=== PATIENT | male | born 1940 | race Caucasian/White ===

== ENCOUNTER 2016-12-10 06:11 | Day surgery (SDC) | payer MEDICARE, BC ==
[2016-12-10] MEDS ORDERED: Sodium Chloride 0.9% 10 ML Syringe FLUSH PRN (06:45)
[2016-12-10] MEDS ORDERED: Lactated Ringers 1,000 ML IV SCH (06:45)
[2016-12-10] MEDS ORDERED: Lidocaine 2% 100 MG/5 ML Syringe IVPUSH ONE (08:00)
[2016-12-10] MEDS ORDERED: Propofol 200 MG/20 ML SDV IV ONE (08:00)
[2016-12-10] MEDS ORDERED: Midazolam 1 MG/ML 2 ML SDV IV ONE (08:00)
--- NOTE | 2016-12-10 08:13 | PCM.OPNOTE ---
- General Post-Op/Procedure Note Date of Surgery/Procedure: 12/10/16 Operative Procedure(s): egd with bx Findings: gastritis in the antrum Pre Op Diagnosis: hx of antral ulcer. h pylori Post-Op Diagnosis: gastritis Anesthesia Technique: JAIR Primary Surgeon: Vikas Krishnan Anesthesia Provider: Oswaldo Villar Pathology: antrum Complications: None Condition: Good Free Text/Narrative:: see dictation
[2016-12-10 08:59] VITALS: BP 170/90
--- NOTE | 2016-12-10 14:25 | OR ---
DATE OF OPERATION: 12/10/2016 SURGEON: Vikas Krishnan MD PROCEDURE PERFORMED: Esophagogastroduodenoscopy with cold forceps biopsy. PREOPERATIVE DIAGNOSIS: History of an antral ulcer and Helicobacter pylori infection. POSTOPERATIVE DIAGNOSIS: Gastritis. INDICATIONS FOR PROCEDURE: This is a 76-year-old white male, who presents for followup upper endoscopy. He has a history of any antral ulcer that has been very slow to healing. Finally, he has been diagnosed with Helicobacter pylori and has been treated. He feels wonderful now, but was offered an EGD to ensure that things have healed. DESCRIPTION OF OPERATION: After an excellent IV sedation was administered, the bite block was inserted. The flexible endoscope was passed without difficulty down the patient's esophagus into the stomach. The was insufflated. The scope was passed through the pylorus to the second portion of the duodenum and slowly withdrawn. The following findings were noted. Duodenum is unremarkable. Stomach with some mild irritation in the antrum as well as some prominent folds; however, there is no evidence of any ulcers, which appeared to have been healed. Mill Representative biopsies were taken. The remainder of the gastric exam was essentially unremarkable. The esophagus was unremarkable. The stomach was deflated. Scope was removed. The patient tolerated the procedure well and was taken to recovery room in good condition. /[id number] /MODL
== END 2016-12-10 09:24 | disposition home or self-care (01) ==
LOC: FB.SDS 06:11
PROVIDERS: ATTEND Surgery
DX: K29.50 Unspecified chronic gastritis without bleeding (principal); K31.9 Disease of stomach and duodenum, unspecified; I25.10 Atherosclerotic heart disease of native coronary artery without angina pectoris; I10 Essential (primary) hypertension; E78.00 Pure hypercholesterolemia, unspecified; N40.0 Benign prostatic hyperplasia without lower urinary tract symptoms; E66.9 Obesity, unspecified; Z87.891 Personal history of nicotine dependence; Z79.82 Long term (current) use of aspirin; Z79.899 Other long term (current) drug therapy
CPT/HCPCS: 00740; 43239; 88305; 88342; J2250; J2704; J7120

== ENCOUNTER 2017-05-20 09:06 | Inpatient (IN) | payer MEDICARE, BC ==
[2017-05-20] MEDS ORDERED: Sodium Chloride 0.9% 10 ML Syringe FLUSH PRN (14:21)
[2017-05-20] MEDS ORDERED: Sodium Chloride 0.9% 250 ML IV SCH (14:30)
[2017-05-20] MEDS: Furosemide 40 MG/4 ML VIAL IVPUSH ONE (15:29)
[2017-05-20] MEDS ORDERED: Acetaminophen/Codeine 300-30 MG Tab PO PRN (16:45)
--- NOTE | 2017-05-20 16:48 | PCM.HP ---
H&P History of Present Illness - General Date of Service: 05/20/17 Admit Problem/Dx: Admission Diagnosis/Problem Admission Diagnosis/Problem Anemia Source of Information: Patient, Old Records History Limitations: Reports: No Limitations - History of Present Illness Initial Comments - Free Text/Narative: 77-year-old male with shortness of breath on any exertion. Symptoms have progressively gotten worse over 2 weeks. They also include excessive weight gain , significant swelling of both legs, and nonspecific chest pain. He denies any cough,headache,nausea or vomiting. He had occasional constipation but is well controlled on MiraLAX. He came to the clinic today and was found to have a hemoglobin of 6.0. He has a history of a GI bleed from a gastric ulcer and was last scoped in December by Dr. Krishnan. He also has a history of CAD, previously stable(PET scan neg in 2014) obesity, hypertension hyperlipidemia but also been well-controlled. He denies any melena stools dizziness or headache. He has chronic back pain from arthritis. - Related Data Allergies/Adverse Reactions: Allergies Allergy/AdvReac Type Severity Reaction Status Date / Time No Known Allergies Allergy Verified 05/20/17 14:42 Home Medications: Home Meds Atenolol/Chlorthalidone [Tenoretic 50 Tablet] 0.5 tab PO DAILY 02/28/16 [History ] Gluc 2KCl/Chondr/Martha Hy/Hy Ac [Glucosamine & Chondroitin Cap] 1 each PO BID [History] Disney-3S/DHA/Epa/Fish Oil [Disney-3 Fish Oil 1,000 mg Sfgl] 1,200 mg PO BID 02/27 [History] Simvastatin [Zocor] 80 mg PO BEDTIME 02/28/16 [History] amLODIPine [Norvasc] 10 mg PO DAILY 02/28/16 [History] Acetaminophen with Codeine [Tylenol with Codeine #3 Tablet] 2 tab PO Q4H PRN # 20 tablet 03/02/16 [Rx] Aspirin [Halfprin] 162 mg PO DAILY 04/16/16 [History] Furosemide [Furosemide] 40 mg PO DAILY 05/20/17 [History] Omeprazole 20 mg PO DAILY 05/20/17 [History] Polyethylene Glycol 3350 [MiraLAX] 17 gm PO DAILY 05/20/17 [History] Sennosides/Docusate Sodium [Senna S Tablet] 1 each PO DAILY 05/20/17 [History] Past Medical History HEENT History: Reports: Cataract Other HEENT History: glasses Cardiovascular History: Reports: CAD, High Cholesterol, Hypertension, Other ( See Below) Other Cardiovascular History: carotid artery disease, edema Respiratory History: Reports: None Other Respiratory History: FORMER SMOKER Gastrointestinal History: Reports: GERD, GI Bleed, PUD Other Gastrointestinal History: HX H PYLORI Genitourinary History: Reports: BPH, Prostate Disorder Other Genitourinary History: renal colic Musculoskeletal History: Reports: Arthritis, Osteoarthritis, Other (See Below) Other Musculoskeletal History: severe arthritic pain in both knees, lower abck, right shoulder, both wrists Endocrine/Metabolic History: Reports: Obesity/BMI 30+ Hematologic History: Reports: Anemia, Blood Transfusion(s) Oncologic (Cancer) History: Reports: Other (See Below) Other Oncologic History: PT DID NOT HAVE PROSTATE CA - Infectious Disease History Infectious Disease History: Reports: Chicken Pox, Shingles - Past Surgical History Cardiovascular Surgical History: Reports: Other (See Below) Respiratory Surgical History: Reports: None GI Surgical History: Reports: Colonoscopy, Polypectomy Social & Family History - Tobacco Use Smoking Status *Q: Former Smoker Years of Tobacco use: 20 Packs/Tins Daily: 1 Used Tobacco, but Quit: Yes Month Tobacco Last Used: 1988 Second Hand Smoke Exposure: No - Caffeine Use Caffeine Use: Reports: Coffee - Alcohol Use Days Per Week of Alcohol Use: 5 Number of Drinks Per Day: 2 Total Drinks Per Week: 10 - Recreational Drug Use Recreational Drug Use: No H&P Review of Systems - Review of Systems: Review Of Systems: ROS reveals no pertinent complaints other than HPI. Exam - Exam Exam: See Below - Vital Signs Vital Signs: Last Vital Signs Temp 98.1 F 05/20/17 14:05 Pulse 67 05/20/17 14:05 Resp 19 05/20/17 14:05 BP 120/61 05/20/17 14:05 Pulse Ox 94 L 05/20/17 14:05 Weight: 119.975 kg - Exam Quality Assessment: No: Supplemental Oxygen General: Alert, Oriented, 4 HEENT: PERRLA, Hearing Intact, Mucosa Moist & Parnell, Nares Patent, Normal Nasal Septum, Posterior Pharynx Clear, Conjunctiva Clear, EOMI, EACs Clear, TMs Clear Neck: Supple, Trachea Midline, 2 Lungs: Clear to Auscultation, Normal Respiratory Effort Cardiovascular: Regular Rate, Regular Rhythm GI/Abdominal Exam: Normal Bowel Sounds, Distended. No: Guarding, Tender, Mass, Hepatomegaly (Male) Exam: No Hernia, Normal Inspection, Normal Prostate, Circumcised Rectal (Males) Exam: Normal Exam Back Exam: Normal Inspection, Full Range of Motion, NT Extremities: Normal Inspection, Normal Range of Motion, Non-Tender, No Pedal Edema, Normal Capillary Refill, Pedal Edema (+++) Skin: Warm, Dry, Intact Neurological: Cranial Nerves Intact, Reflexes Equal Bilateral Neuro Extensive - Mental Status: Alert, Oriented x3, Normal Mood/Affect, Normal Cognition Neuro Extensive - Motor, Sensory, Reflexes: CN II-XII Intact, Normal Gait, Normal Reflexes Psychiatric: Alert, Normal Affect, Normal Mood - Patient Data Lab Results Last 24 hrs: Laboratory Results - last 24 hr 05/20/17 Range/Units 15:00 Blood Type O POSITIVE Gel Antibody Screen Negative Crossmatch See Detail Imaging Impressions Last 24 hrs: CXR? infiltrate on right perihilar region *Q Meaningful Use (ADM) - VTE *Q VTE Criteria *Q: - Stroke *Q Stroke Criteria *Q: - AMI *Q AMI Criteria *Q: - Problem List (1) SOBOE (shortness of breath on exertion) SNOMED Code(s): 30184743 ICD Code: R06.02 - SHORTNESS OF BREATH Status: Acute Current Visit: Yes (2) Obesities, morbid SNOMED Code(s): 724410530, 46713404380741 ICD Code: E66.01 - MORBID (SEVERE) OBESITY DUE TO EXCESS CALORIES Status: Acute Current Visit: Yes (3) CHF (congestive heart failure), NYHA class III SNOMED Code(s): 474408802, 000718027 ICD Code: I50.9 - HEART FAILURE, UNSPECIFIED Status: Acute Current Visit : Yes Qualifiers: Congestive heart failure type: unspecified congestive heart failure type Qualified Code(s): I50.9 - Heart failure, unspecified (4) Anemia SNOMED Code(s): 852449497 ICD Code: D64.9 - ANEMIA, UNSPECIFIED Status: Acute Current Visit: No Qualifiers: Anemia type: iron deficiency (5) HTN (hypertension) SNOMED Code(s): 64399365 ICD Code: I10 - ESSENTIAL (PRIMARY) HYPERTENSION Status: Acute Current Visit: Yes Qualifiers: Hypertension type: essential hypertension Qualified Code(s): I10 - Essential (primary) hypertension (6) H/O: GI bleed SNOMED Code(s): 691578896 ICD Code: Z87.19 - PERSONAL HISTORY OF OTHER DISEASES OF THE DIGESTIVE SYSTEM Status: Chronic Current Visit: Yes (7) HLD (hyperlipidemia) SNOMED Code(s): 74647192 ICD Code: E78.5 - HYPERLIPIDEMIA, UNSPECIFIED Status: Chronic Current Visit: Yes Qualifiers: Hyperlipidemia type: unspecified Qualified Code(s): E78.5 - Hyperlipidemia , unspecified (8) MEHUL (acute kidney injury) SNOMED Code(s): 99159828 ICD Code: N17.9 - ACUTE KIDNEY FAILURE, UNSPECIFIED Status: Acute Current Visit: Yes (9) CAD (coronary artery disease) SNOMED Code(s): 19056113 ICD Code: I25.10 - ATHSCL HEART DISEASE OF [place] CORONARY ARTERY W/O ANG PCTRS Status: Acute Current Visit: Yes Qualifiers: Coronary Disease-Associated Artery/Lesion type: hoopa artery (10) Back pain SNOMED Code(s): 803494629 ICD Code: M54.9 - DORSALGIA, UNSPECIFIED Status: Acute Current Visit: Yes Qualifiers: Back pain location: low back pain Chronicity: chronic Sciatica presence: unspecified whether sciatica present Problem List Initiated/Reviewed/Updated: Yes Orders Last 24hrs: Active Orders 24 hr Category Date Time Status Admission Status [Patient Status] [ADT] Routine ADT 05/20/17 13:40 Active Patient Status [ADT] Routine ADT 05/20/17 14:21 Active EKG Documentation Completion [RC] ASDIRECTED Care 05/20/17 14:24 Active Height and Weight [RC] 07 Care 05/20/17 14:21 Active Intake and Output [RC] 06,14,22 Care 05/20/17 14:22 Active Oxygen Therapy [RC] PRN Care 05/20/17 14:21 Active Up With Assistance [RC] ASDIRECTED Care 05/20/17 14:21 Active VTE/DVT Education [RC] Per Unit Routine Care 05/20/17 14:21 Active Vital Signs [RC] Q4H Care 05/20/17 14:21 Active Nothing per Oral After Midnight Diet [DIET] Diet 05/20/17 Dinner Active Chest 2V [CR] Stat Exams 05/20/17 14:21 Taken B-TYPE NATRIURETIC PEPTIDE,BNP [CHEM] AM Lab 05/21/17 05:11 Ordered B-TYPE NATRIURETIC PEPTIDE,BNP [CHEM] Stat Lab 05/20/17 16:44 Ordered CBC WITH AUTO DIFF [HEME] AM Lab 05/21/17 05:11 Ordered CBC WITH AUTO DIFF [HEME] Stat Lab 05/20/17 16:44 Ordered COMPREHENSIVE METABOLIC PN,CMP [CHEM] AM Lab 05/21/17 05:11 Ordered COMPREHENSIVE METABOLIC PN,CMP [CHEM] Stat Lab 05/20/17 16:44 Ordered D Dimer [D-DIMER QUANTITATIVE] [COAG] Routine Lab 05/20/17 16:45 Ordered RED BLOOD CELLS LP [BBK] Urgent Lab 05/20/17 15:00 Results TROPONIN I [CHEM] AM Lab 05/21/17 05:11 Ordered TYPE AND SCREEN [BBK] Urgent Lab 05/20/17 15:00 Results Acetaminophen with Codeine [Tylenol with Codeine #3 Med 05/20/17 16:45 Ordered Tablet] 2 tab PO Q4H PRN Aspirin [Halfprin] Med 05/21/17 09:00 Ordered 162 mg PO DAILY Atenolol/Chlorthalidone [Tenoretic 50 Tablet] Med 05/21/17 09:00 Ordered 0.5 tab PO DAILY Omeprazole [Omeprazole] Med 05/21/17 09:00 Ordered 20 mg PO DAILY Polyethylene Glycol 3350 [MiraLAX] Med 05/21/17 09:00 Ordered 17 gm PO DAILY Sennosides/Docusate Sodium [Senna S Tablet] Med 05/21/17 09:00 Ordered 1 each PO DAILY Simvastatin [Zocor] Med 05/20/17 21:00 Ordered 80 mg PO BEDTIME Sodium Chloride 0.9% [Normal Saline] 250 ml Med 05/20/17 14:30 Active IV ASDIRECTED Sodium Chloride 0.9% [Saline Flush] Med 05/20/17 14:21 Active 10 ml FLUSH ASDIRECTED PRN amLODIPine [Norvasc] Med 05/21/17 09:00 Ordered 10 mg PO DAILY Antiembolic Hose [OM.PC] Per Unit Routine Oth 05/20/17 14:22 Ordered Peripheral IV Insertion Adult [OM.PC] Routine Oth 05/20/17 14:21 Ordered Transfuse Red Blood Cells [COMM] Urgent Oth 05/20/17 14:21 Ordered Resuscitation Status Routine Resus Stat 05/20/17 14:21 Ordered EKG 12 Lead [EK] Stat Ther 05/20/17 14:21 Ordered Medication Orders Sodium Chloride (Normal Saline) 250 mls @ 100 mls/hr IV ASDIRECTED BRANNON Sodium Chloride (Saline Flush) 10 ml FLUSH ASDIRECTED PRN PRN Reason: Keep Vein Open Assessment/Plan Comment:: I have reviewed the chest x-ray shows some perihilar infiltrate on the right(? cause). I have no comparison films. I'll obtain a d-dimer and BNP along with a CMP tonight. I'll consider strongly obtaining a CT scan if the d-dimer is markedly elevated. For his hemoglobin,I have ordered a retic count TIBC, and ferritin levels. Of ordered transfusion of 2 units of PRBCs and discussed the risks with him. At this time I'm not sure the source of his bleeding but given his prior history of an antral ulcer I'm worried that it could be GI. I will obtain a fecal BLOOD occult blood test AND KEEP HIM ON HIS HOME DOSE OF OMEPRAZOLE. CHF IS ALSO POSSIBLE BECAUSE OF SHORTNESS OF BREATH ON EXERTION and as SUCH I have GIVEN 40 MG OF LASIX ONCE AND OF ORDERED FOR ECHOCARDIOGRAM. THE REST OF HIS HOME MEDICATIONS WILL BE CONTINUED
[2017-05-20] MEDS ORDERED: SIMVASTATIN 80 MG PO SCH (21:00)
[2017-05-21] MEDS ORDERED: Docusate Sodium/Sennosides 50-8.6 MG Tab *PTOM PO SCH (09:00)
[2017-05-21] MEDS ORDERED: CHLORTHALIDONE PO SCH (09:00)
[2017-05-21] MEDS ORDERED: Aspirin 81 MG Tab.EC *PTOM PO SCH (09:00)
[2017-05-21] MEDS ORDERED: Omeprazole 20 MG Cap.CR *PTOM PO SCH (09:00)
[2017-05-21] MEDS ORDERED: amLODIPine 10 MG Tab *PTOM PO SCH (09:00)
[2017-05-21] MEDS ORDERED: ATENOLOL PO SCH (09:00)
[2017-05-21] MEDS ORDERED: Sodium Chloride 0.9% 250 ML IV SCH (09:15)
[2017-05-21] MEDS ORDERED: Iopamidol 755 Mg/ML 100 ML Bottle IV ONE (10:24)
--- NOTE | 2017-05-21 10:26 | PN ---
DATE SEEN: 05/21/2017 REASON FOR VISIT: Anemia. HISTORY OF PRESENT ILLNESS: This is a 77-year-old male, who was admitted last night because of anemia. Had 2 units of blood, but his hemoglobin is up to only 7.5 this morning. He complains of shortness of breath on any exertion and weakness, but denies chest pain. He has no fever. REVIEW OF SYSTEMS: All other systems are negative. PAST MEDICAL HISTORY: Obesity, hypertension, coronary artery disease, hyperlipidemia, history of GI bleed due to an ulcer, and history of CHF. PHYSICAL EXAMINATION: VITAL SIGNS: This morning, he has oxygenation of 94% on 2 L of nasal cannula. His pulse rate is 70 beats per minute and temperature 98.5. EARS, NOSE, AND THROAT: Negative. NECK: Supple. No thyromegaly. Trachea is midline. CHEST: Rales and coarse crepitations bilaterally. CARDIOVASCULAR: Normal S1 and S2. EXTREMITIES: Marked peripheral edema. ABDOMEN: Distended, but nontender and no organomegaly noted. LABORATORY DATA: He has pancytopenia with platelet cell count of 26, white cell count 3.2, hemoglobin 7.5. D-dimer is 826. BNP is 457. Electrolytes are normal. Chest x-ray showed bilateral infiltrates, possibly CHF related. EKG normal sinus rhythm. IMPRESSION: 1. Shortness of breath on exertion, unknown reason. 2. Hypoxia. 3. Pancytopenia with anemia and low platelets. 4. Coronary artery disease. 5. Obesity. 6. Hypertension. PLAN: I will obtain an echocardiogram. I will start Lasix IV and give one more unit of PRBCs. Repeat CBC and basic profile in the morning. I will change him to inpatient. I am still waiting for the occult blood in the stool. /[id number] TN/YOONL
[2017-05-21] MEDS: Furosemide 40 MG/4 ML VIAL IVPUSH ONE (10:31)
[2017-05-21] MEDS: Furosemide 40 MG/4 ML VIAL IVPUSH SCH ×2 (10:32→15:42)
[2017-05-21] MEDS: Polyethylene Glycol 3350 Powder 17 GM Packet PO SCH (10:32)
--- NOTE | 2017-05-21 12:57 | CR ---
INDICATION: Anemia. CHEST: PA and two lateral views of the chest were obtained and revealed bibasilar pleural parenchymal changes, which may be on the basis of pneumonia and pleuritis. The heart is enlarged in general with slightly prominent upper lung field pulmonary vasculature, raising question of mild CHF. The appearance of the heart also makes it difficult to exclude a pericardial effusion. Bridging hyperostotic changes are noted in the mid thoracic spine. IMPRESSION: 1. ASHD with cardiomegaly and possible mild CHF. 2. Bibasilar pleural parenchymal changes, which may be on the basis of pneumonia and pleuritis - correlate clinically. 3. DJD spine. MTDD
--- NOTE | 2017-05-21 13:32 | CT ---
INDICATION: Hypoxia, elevated D-dimer at 826. CT ANGIOGRAPHY OF CHEST FOR PULMONARY ARTERIOGRAPHY: Spiral 1.25 mm axial sections were obtained through the chest with 80 mL Isovue 370 at 4 mm/second with sagittal and coronal reconstructions 05/21/2017. No comparisons were available, except for chest x-ray from 05/20/2017. Total exam DLP = 878.73 mGy-cm. Bilateral moderate sized pleural effusions are noted, right greater than left. Interstitial markings are prominent at the lung bases, which may be on the basis of pulmonary vascular congestion in a patient with CHF. The heart is enlarged with valvular and coronary artery calcifications. The possibility of some pneumonia and pleuritis would also be a consideration. Mediastinal lymphadenopathy is of moderate degree scattered throughout the mediastinum and is nonspecific, etiology indeterminate - pneumonia versus neoplasia. Other etiologies such as inflammatory disease cannot be excluded. Calcifications are noted also in the aorta. No definite evidence for pulmonary emboli could be identified. The upper abdomen revealed evidence of fairly massive abdominal ascites and a somewhat nodular appearance of the liver. The spleen appeared prominent but was not fully visualized. Significant splenic enlargement could be present. There appears to be a moderately large calculus near the neck of the gallbladder. Thickening of the wall cannot be excluded. It is not well seen. Gallbladder ultrasound is recommended for further evaluation. The apparent gallstone measures approximately 2 cm. IMPRESSION: 1. No definite evidence for pulmonary emboli. 2. ASHD, cardiomegaly, probable CHF and interstitial lung edema with bilateral pleural effusions of moderate size, right greater than left - cannot exclude superimposed minimal pneumonia with pleuritis. 3. Cholelithiasis with possibility of acute cholecystitis - ultrasound recommended for further evaluation. 4. 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 5. Abdominal ascites, which may be related to cirrhosis of the liver. Splenomegaly may also be present. Report was called to Dr. Horner at 1207 hours on 05/21/2017. [facility]
--- NOTE | 2017-05-22 02:08 | CONS ---
DATE OF CONSULTATION: 05/21/2017 REASON FOR CONSULTATION: Anemia. HISTORY OF PRESENT ILLNESS: This is a 77-year-old white male, who is admitted with a worsening case of shortness of breath and dyspnea on exertion who has gotten progressively worse over the past two weeks. He is also noted to have weight gain as well as increased swelling in his legs. On evaluation in the clinic, he was noted to have a hemoglobin of 6. He has a history of an upper gastrointestinal bleed from an antral ulcer and was last scoped in December. He has received several units transfusion and has come up to 7.5 from 6.9 and apparently received another unit with a CBC pending. ALLERGIES: He has no known drug allergies. MEDICATIONS: Home medications included, 1. Tenoretic 0.5 tablets daily. 2. Glucosamine chondroitin one tablet b.i.d. 3. [place]-3 fish oil 1200 mg b.i.d. Simvastatin 80 mg at bedtime. 1. Norvasc 10 mg daily. 2. Codeine 2 tablets q.4 as needed. 3. Aspirin 162 mg p.o. daily. 4. Furosemide 40 mg daily. 5. Omeprazole 20 mg daily. 6. MiraLAX 17 g daily. 7. Senna-S tablet one p.o. daily. PAST MEDICAL HISTORY: Significant for cataracts, coronary artery disease, carotid artery disease, hypertension, hypercholesterolemia, gastroesophageal reflux disease, as well as antral ulcer secondary to Helicobacter pylori. He does have BPH and history of renal colic in the past as well as osteoarthritis, obesity as well. PAST SURGICAL HISTORY: Significant for colonoscopy with polypectomy in the past as well as upper endoscopy. He has had some cardiac surgery. SOCIAL HISTORY: He did have a 83-rizr-bulw smoking history. Does drink coffee and has an occasional drink during the week. REVIEW OF SYSTEMS: HEENT: Negative for HEENT. PULMONARY: Demonstrates some shortness of breath. CARDIOVASCULAR: Reveals enlarged leg swelling. GI: Has had some constipation, but this has been under control since he has been started with the MiraLAX. He denies any black or bloody stools, but does have some epigastric abdominal discomfort. GENITOURINARY: Negative. MUSCULOSKELETAL: Positive for some foot pain as well as some leg pain. PHYSICAL EXAMINATION: GENERAL: This is a well-developed, well-nourished white male, appearing in no acute distress. HEENT: Grossly within normal limits. LUNGS: Clear to auscultation. HEART: Regular rate and rhythm. ABDOMEN: Soft, normoactive bowel sounds. No rebound, guarding, or tenderness was noted. RECTAL: Deferred. EXTREMITIES: 2+ pitting edema up to his mid calves. SKIN: Warm, dry, and intact. NEURO: He demonstrates no gross neurologic defects. LABORATORY DATA: Laboratory evaluation at the time of my consult reveals a white count of 3.2 with an H and H of 7.5 and 26.7, platelet count of 26. Electrolytes were remarkable for carbon dioxide of 30, total bilirubin 1.4, ALT of 10. Troponin of 0.01 and BNP of 398, which is down from 457. ASSESSMENT: Anemia with history of peptic ulcer disease. PLAN: We are going to proceed with an upper endoscopy tomorrow to make sure that his gastric ulcer has not returned. The procedure and risks were explained to the patient, to include bleeding, infection, and perforation. The patient expresses understanding, and he asked us to proceed. /[id number] /MODL
[2017-05-22] MEDS: Pantoprazole 40 MG Tab.CR PO SCH (06:07)
--- NOTE | 2017-05-22 09:06 | PCM.PN ---
- General Info Date of Service: 05/22/17 Admission Dx/Problem (Free Text): Patient states that he can walk a little farther without getting short of breath. He denies any history of PND or orthopnea. He says leg swelling is also improved. He denies any melena or hematochezia. Does have a history of passing ulcer and 2 previous EGDs. He complains of low back pain has been persistent for years. - Patient Data Vitals - Most Recent: Last Vital Signs Temp 98.5 F 05/22/17 06:00 Pulse 69 05/22/17 06:00 Resp 18 05/22/17 06:00 BP 126/70 05/22/17 06:00 Pulse Ox 96 05/22/17 06:00 Weight - Most Recent: 250 lb I&O - Last 24 Hours: Intake & Output 05/21/17 05/22/17 05/22/17 22:59 06:59 14:59 Intake Total 755 50 Balance 755 50 Lab Results Last 24 Hours: Laboratory Results - last 24 hr 05/20/17 05/22/17 05/22/17 Range/Units 15:00 06:20 06:20 WBC 3.5 L (4.5-12.0) X10-3/uL RBC 4.70 (4.30-5.75) x10(6)uL Hgb 8.8 L (11.5-15.5) g/dL Hct 30.2 (30.0-51.3) % MCV 64.1 L (80-96) fL MCH 18.7 L (27.7-33.6) pg MCHC 29.2 L (32.2-35.4) g/dL RDW 29.6 H (11.5-15.5) % Plt Count 25 L* (125-369) X10(3)uL MPV 9.9 (7.4-10.4) fL Add Manual Diff Yes Neutrophils % (Manual) 78 (46-82) % Lymphocytes % (Manual) 17 (13-37) % Monocytes % (Manual) 4 (4-12) % Eosinophils % (Manual) 1 (0-5) % Hypochromasia Many H Poikilocytosis Moderate H Anisocytosis Many H Microcytosis Moderate H Macrocytosis Moderate H Ovalocytes Moderate H Sodium 139 (135-145) mmol/L Potassium 3.3 L (3.5-5.3) mmol/L Chloride 101 (100-110) mmol/L Carbon Dioxide 33 H (23-29) mmol/L BUN 13 (8-23) mg/dL Creatinine 0.7 (0.6-1.3) mg/dL Est Cr Clr Drug Dosing 86.86 mL/min Estimated GFR (MDRD) > 60 (>60) BUN/Creatinine Ratio 18.6 (9-20) Glucose 96 (80-116) mg/dL Calcium 8.9 (8.6-10.2) mg/dL Blood Type O POSITIVE Gel Antibody Screen Negative Crossmatch See Detail Steve Results Last 24 Hours: Microbiology 05/21/17 04:50 Occult Blood - Final Stool / Feces Med Orders - Current: Current Medications Acetaminophen/Codeine Phosphate (Tylenol With Codeine No.3 300mg/30mg) 2 tab PO Q4H PRN PRN Reason: Pain Amlodipine Besylate (Norvasc) 10 mg PO DAILY [facility] Aspirin (Halfprin) 162 mg PO DAILY [facility] Atenolol/Chlorthalidone (Tenoretic 50) 0.5 tab PO DAILY [facility] Furosemide (Lasix) 40 mg IVPUSH BIDDIURETIC [facility] Last Admin: 05/21/17 15:42 Dose: 40 mg Sodium Chloride (Normal Saline) 250 mls @ 100 mls/hr IV ASDIRECTED [facility] Last Admin: 05/20/17 20:27 Dose: 100 mls/hr Sodium Chloride (Normal Saline) 250 mls @ 100 mls/hr IV ASDIRECTED [facility] Pantoprazole Sodium (Protonix) 40 mg PO DAILY@0600 [facility] Last Admin: 05/22/17 06:07 Dose: 40 mg Polyethylene Glycol (Miralax) 17 gm PO DAILY [facility] Last Admin: 05/21/17 10:32 Dose: Not Given Senna/Docusate Sodium (Senna Plus) 1 tab PO DAILY [facility] Simvastatin (Zocor) 80 mg PO BEDTIME [facility] Last Admin: 05/21/17 20:11 Dose: 80 mg Sodium Chloride (Saline Flush) 10 ml FLUSH ASDIRECTED PRN PRN Reason: Keep Vein Open Discontinued Medications Amlodipine Besylate (Norvasc) 10 mg PO DAILY [facility] Last Admin: 05/21/17 09:10 Dose: 10 mg Aspirin (Halfprin) 162 mg PO DAILY [facility] Last Admin: 05/21/17 09:09 Dose: 162 mg Furosemide (Lasix) 40 mg IVPUSH NOW ONE Stop: 05/20/17 14:22 Last Admin: 05/20/17 15:29 Dose: 40 mg Iopamidol (Isovue-370 (76%)) 100 ml IV . DIRECTED ONE Stop: 05/21/17 10:25 Last Admin: 05/21/17 11:09 Dose: 100 ml Atenolol/Chlorthalidone 50/25 Tab *Ptom 0.5 tab PO DAILY [facility] Last Admin: 05/21/17 09:09 Dose: 0.5 tab Simvastatin [Zocor] (80 Mg *Ptom) 80 mg PO BEDTIME [facility] Last Admin: 05/20/17 21:13 Dose: 80 mg Omeprazole (Omeprazole) 20 mg PO DAILY [facility] Last Admin: 05/21/17 09:10 Dose: 20 mg Senna/Docusate Sodium (Senna Plus) 1 tab PO DAILY [facility] Last Admin: 05/21/17 09:10 Dose: 1 tab - Exam General: Alert, Oriented, Cooperative Lungs: Clear to Auscultation, Normal Respiratory Effort Cardiovascular: Regular Rate, Regular Rhythm, No Murmurs Extremities: Pedal Edema (1+) Psy/Mental Status: Alert, Normal Affect, Normal Mood - Problem List & Annotations (1) CHF (congestive heart failure), NYHA class III SNOMED Code(s): 616224104, 350678240 Code(s): I50.9 - HEART FAILURE, UNSPECIFIED Status: Acute Current Visit: Yes Qualifiers: Congestive heart failure type: unspecified congestive heart failure type Qualified Code(s): I50.9 - Heart failure, unspecified (2) HTN (hypertension) SNOMED Code(s): 99215995 Code(s): I10 - ESSENTIAL (PRIMARY) HYPERTENSION Status: Acute Current Visit: Yes Qualifiers: Hypertension type: essential hypertension Qualified Code(s): I10 - Essential (primary) hypertension (3) Obesities, morbid SNOMED Code(s): 567900924, 38310887570459 Code(s): E66.01 - MORBID (SEVERE) OBESITY DUE TO EXCESS CALORIES Status: Acute Current Visit: Yes (4) SOBOE (shortness of breath on exertion) SNOMED Code(s): 68800788 Code(s): R06.02 - SHORTNESS OF BREATH Status: Acute Current Visit: Yes (5) H/O: GI bleed SNOMED Code(s): 787022064 Code(s): Z87.19 - PERSONAL HISTORY OF OTHER DISEASES OF THE DIGESTIVE SYSTEM Status: Chronic Current Visit: Yes (6) Anemia SNOMED Code(s): 255088946 Code(s): D64.9 - ANEMIA, UNSPECIFIED Status: Acute Current Visit: No Qualifiers: Anemia type: iron deficiency - Problem List Review Problem List Initiated/Reviewed/Updated: Yes - Plan Plan:: 1. Continue Lasix. 2. Peripheral smear. 3. EGD today. 4. Echocardiogram 5. Labs in the a.m.
[2017-05-22] MEDS: Polyethylene Glycol 3350 Powder 17 GM Packet PO SCH (09:29)
[2017-05-22] MEDS: amLODIPine 10 MG Tab PO SCH (09:29)
[2017-05-22] MEDS: Aspirin 81 MG Tab.EC PO SCH (09:29)
[2017-05-22] MEDS: Atenolol/Chlorthalidone 50-25 MG Tab PO SCH (09:30)
[2017-05-22] MEDS: Furosemide 40 MG Tab PO SCH ×2 (10:00→15:00)
[2017-05-22] MEDS ORDERED: Propofol 200 MG/20 ML SDV IV ONE (12:00)
[2017-05-22] MEDS ORDERED: Midazolam 1 MG/ML 2 ML SDV IV ONE (12:00)
--- NOTE | 2017-05-22 12:20 | PCM.OPNOTE ---
- General Post-Op/Procedure Note Date of Surgery/Procedure: 05/22/17 Operative Procedure(s): egd with bx Findings: hypertrophic antral tissue no antral ulcer Pre Op Diagnosis: hx of antral ulcer. anemia Post-Op Diagnosis: normal exam Anesthesia Technique: JAIR Primary Surgeon: Vikas Krishnan Anesthesia Provider: Oswaldo Villar Pathology: antrum Complications: None Condition: Good Free Text/Narrative:: Intake & Output 05/21/17 05/22/17 05/22/17 22:59 06:59 14:59 Intake Total 755 50 Balance 755 50 see dictation
--- NOTE | 2017-05-22 19:12 | OR ---
DATE OF OPERATION: 05/22/2017 SURGEON: Vikas Krishnan MD PROCEDURE PERFORMED: Esophagogastroduodenoscopy with cold forceps biopsy. PREOPERATIVE DIAGNOSIS: History of anemia with history of antral ulcer. POSTOPERATIVE DIAGNOSIS: Normal exam with hypotrophic folds of the antrum. INDICATIONS FOR PROCEDURE: This is a 77-year-old white male who apparently was recently admitted with anemia. He has a history of an antral ulcer in the past and an EGD was requested to evaluate for possible return of the ulcer. DESCRIPTION OF OPERATION: After an excellent IV sedation was administered, the bite block was inserted. The flexible endoscope was passed without difficulty down the patient's esophagus into the stomach. The stomach was insufflated. Scope was passed through the pylorus to the second portion of duodenum and slowly withdrawn. The following findings were noted. Duodenum unremarkable. Antrum, there were some hypotrophic folds which were biopsied, but I saw no evidence of any ulceration in the stomach. Biopsies were taken of the folds. Esophagus was unremarkable. The stomach was deflated. Scope was removed. The patient tolerated the procedure well and was taken to recovery in good condition. /[id number] 1502 /MODL
[2017-05-22] MEDS: Furosemide 40 MG/4 ML VIAL IVPUSH SCH (23:09)
[2017-05-22 23:17] LABS: UNSATURATED IRON BIND CAPACITY 373 ug/dL (112-347)
[2017-05-23] MEDS: Pantoprazole 40 MG Tab.CR PO SCH (06:41)
[2017-05-23] MEDS: Furosemide 40 MG Tab PO SCH (08:58)
[2017-05-23] MEDS: Aspirin 81 MG Tab.EC PO SCH (10:00)
[2017-05-23] MEDS: Polyethylene Glycol 3350 Powder 17 GM Packet PO SCH (10:11)
--- NOTE | 2017-05-23 10:13 | PCM.PN ---
- General Info Date of Service: 05/23/17 Admission Dx/Problem (Free Text): This a 77-year-old male patient states he feels good today. Leg swelling is down. He is able to walk down the mike without getting too short of breath. He denies any rectal bleeding or melena. Denies bruising. - Patient Data Vitals - Most Recent: Last Vital Signs Temp 98 F 05/23/17 06:00 Pulse 70 05/23/17 06:00 Resp 18 05/23/17 06:00 BP 124/71 05/23/17 06:00 Pulse Ox 95 05/23/17 06:00 Weight - Most Recent: 245 lb 8 oz I&O - Last 24 Hours: Intake & Output 05/22/17 05/23/17 05/23/17 22:59 06:59 14:59 Intake Total 200 100 480 Output Total 600 400 Balance -400 -300 480 Lab Results Last 24 Hours: Laboratory Results - last 24 hr 05/20/17 05/20/17 05/20/17 Range/Units 15:00 15:00 15:00 WBC (4.5-12.0) X10-3/uL RBC (4.30-5.75) x10(6)uL Hgb (11.5-15.5) g/dL Hct (30.0-51.3) % MCV (80-96) fL MCH (27.7-33.6) pg MCHC (32.2-35.4) g/dL RDW (11.5-15.5) % Plt Count (125-369) X10(3)uL MPV (7.4-10.4) fL Neut % (Auto) (46-82) % Lymph % (Auto) (13-37) % Glades % (Auto) (4-12) % Eos % (Auto) (1.0-5.0) % Baso % (Auto) (0-2) % Reticulocyte % (Auto) 1.6 (0.4-2.7) % Neut # (Auto) (1.6-8.3) # Lymph # (Auto) (0.6-5.0) # Glades # (Auto) (0.0-1.3) # Eos # (Auto) (0.0-0.8) # Baso # (Auto) (0.0-0.2) # Smear Path Review Absolute Retic 64 (16-123) K/uL Sodium (135-145) mmol/L Potassium (3.5-5.3) mmol/L Chloride (100-110) mmol/L Carbon Dioxide (23-29) mmol/L BUN (8-23) mg/dL Creatinine (0.6-1.3) mg/dL Est Cr Clr Drug Dosing mL/min Estimated GFR (MDRD) (>60) BUN/Creatinine Ratio (9-20) Glucose (80-116) mg/dL Calcium (8.6-10.2) mg/dL Iron 12 L (45-190) ug/dL TIBC 385 (157-537) ug/dL Iron Saturation 3 L (15-55) % Unsaturated IBC 373 H (112-347) ug/dL Ferritin 13 (11-450) ng/mL Total Bilirubin (0.1-1.3) mg/dL AST (5-27) IU/L ALT (14-26) IU/L Alkaline Phosphatase (56-112) IU/L Total Protein (6.0-8.0) g/dL Albumin (3.2-4.6) g/dL Globulin g/dL Albumin/Globulin Ratio 05/22/17 05/23/17 05/23/17 Range/Units 06:20 06:20 06:20 WBC 3.8 L (4.5-12.0) X10-3/uL RBC 4.97 (4.30-5.75) x10(6)uL Hgb 9.3 L (11.5-15.5) g/dL Hct 32.0 (30.0-51.3) % MCV 64.4 L (80-96) fL MCH 18.8 L (27.7-33.6) pg MCHC 29.2 L (32.2-35.4) g/dL RDW 29.6 H (11.5-15.5) % Plt Count 30 L* (125-369) X10(3)uL MPV 9.7 (7.4-10.4) fL Neut % (Auto) 60.4 (46-82) % Lymph % (Auto) 28.7 (13-37) % Glades % (Auto) 7.9 (4-12) % Eos % (Auto) 3 (1.0-5.0) % Baso % (Auto) 1 (0-2) % Reticulocyte % (Auto) (0.4-2.7) % Neut # (Auto) 2.3 (1.6-8.3) # Lymph # (Auto) 1.1 (0.6-5.0) # Glades # (Auto) 0.3 (0.0-1.3) # Eos # (Auto) 0.1 (0.0-0.8) # Baso # (Auto) 0.0 (0.0-0.2) # Smear Path Review See note Absolute Retic (16-123) K/uL Sodium 142 (135-145) mmol/L Potassium 3.1 L (3.5-5.3) mmol/L Chloride 103 (100-110) mmol/L Carbon Dioxide 32 H (23-29) mmol/L BUN 11 (8-23) mg/dL Creatinine 0.7 (0.6-1.3) mg/dL Est Cr Clr Drug Dosing 86.86 mL/min Estimated GFR (MDRD) > 60 (>60) BUN/Creatinine Ratio 15.7 (9-20) Glucose 102 (80-116) mg/dL Calcium 8.9 (8.6-10.2) mg/dL Iron (45-190) ug/dL TIBC (157-537) ug/dL Iron Saturation (15-55) % Unsaturated IBC (112-347) ug/dL Ferritin (11-450) ng/mL Total Bilirubin 1.2 (0.1-1.3) mg/dL AST 20 (5-27) IU/L ALT 11 L (14-26) IU/L Alkaline Phosphatase 56 (56-112) IU/L Total Protein 5.9 L (6.0-8.0) g/dL Albumin 3.3 (3.2-4.6) g/dL Globulin 2.6 g/dL Albumin/Globulin Ratio 1.3 Med Orders - Current: Current Medications Aspirin (Halfprin) 162 mg PO DAILY [facility] Last Admin: 05/22/17 09:29 Dose: Not Given Carvedilol (Coreg) 6.25 mg PO BID [facility] Furosemide (Lasix) 40 mg PO DAILY [facility] Lisinopril (Prinivil) 20 mg PO DAILY [facility] Pantoprazole Sodium (Protonix) 40 mg PO DAILY@0600 [facility] Last Admin: 05/23/17 06:41 Dose: 40 mg Polyethylene Glycol (Miralax) 17 gm PO DAILY [facility] Last Admin: 05/22/17 09:29 Dose: Not Given Potassium Chloride (Klor-Con M20) 20 meq PO BID [facility] Senna/Docusate Sodium (Senna Plus) 1 tab PO DAILY [facility] Last Admin: 05/22/17 09:29 Dose: Not Given Simvastatin (Zocor) 80 mg PO BEDTIME [facility] Last Admin: 05/22/17 21:25 Dose: 80 mg Sodium Chloride (Saline Flush) 10 ml FLUSH ASDIRECTED PRN PRN Reason: Keep Vein Open Discontinued Medications Acetaminophen/Codeine Phosphate (Tylenol With Codeine No.3 300mg/30mg) 2 tab PO Q4H PRN PRN Reason: Pain Amlodipine Besylate (Norvasc) 10 mg PO DAILY [facility] Last Admin: 05/21/17 09:10 Dose: 10 mg Amlodipine Besylate (Norvasc) 10 mg PO DAILY [facility] Last Admin: 05/22/17 09:29 Dose: Not Given Aspirin (Halfprin) 162 mg PO DAILY [facility] Last Admin: 05/21/17 09:09 Dose: 162 mg Atenolol/Chlorthalidone (Tenoretic 50) 0.5 tab PO DAILY [facility] Last Admin: 05/22/17 09:30 Dose: Not Given Furosemide (Lasix) 40 mg IVPUSH NOW ONE Stop: 05/20/17 14:22 Last Admin: 05/20/17 15:29 Dose: 40 mg Furosemide (Lasix) 40 mg IVPUSH BIDDIURETIC [facility] Last Admin: 05/22/17 23:09 Dose: Not Given Furosemide (Lasix) 40 mg PO BIDDIURETIC [facility] Last Admin: 05/23/17 08:58 Dose: 40 mg Sodium Chloride (Normal Saline) 250 mls @ 100 mls/hr IV ASDIRECTED [facility] Last Admin: 05/20/17 20:27 Dose: 100 mls/hr Sodium Chloride (Normal Saline) 250 mls @ 100 mls/hr IV ASDIRECTED [facility] Iopamidol (Isovue-370 (76%)) 100 ml IV . DIRECTED ONE Stop: 05/21/17 10:25 Last Admin: 05/21/17 11:09 Dose: 100 ml Atenolol/Chlorthalidone 50/25 Tab *Ptom 0.5 tab PO DAILY [facility] Last Admin: 05/21/17 09:09 Dose: 0.5 tab Simvastatin [Zocor] (80 Mg *Ptom) 80 mg PO BEDTIME [facility] Last Admin: 05/20/17 21:13 Dose: 80 mg Omeprazole (Omeprazole) 20 mg PO DAILY [facility] Last Admin: 05/21/17 09:10 Dose: 20 mg Senna/Docusate Sodium (Senna Plus) 1 tab PO DAILY [facility] Last Admin: 05/21/17 09:10 Dose: 1 tab - Exam General: Alert, Oriented, Cooperative Lungs: Clear to Auscultation, Normal Respiratory Effort Cardiovascular: Regular Rate, Regular Rhythm, No Murmurs GI/Abdominal Exam: Normal Bowel Sounds, Soft, Non-Tender, Distended (Mild). No : Guarding, Hepatomegaly, Splenomegaly Extremities: Pedal Edema Psy/Mental Status: Alert, Normal Affect, Normal Mood - Problem List & Annotations (1) CHF (congestive heart failure), NYHA class III SNOMED Code(s): 159371360, 114890986 Code(s): I50.9 - HEART FAILURE, UNSPECIFIED Status: Acute Current Visit: Yes Qualifiers: Congestive heart failure type: diastolic Congestive heart failure chronicity: acute Qualified Code(s): I50.31 - Acute diastolic (congestive) heart failure (2) HTN (hypertension) SNOMED Code(s): 43076635 Code(s): I10 - ESSENTIAL (PRIMARY) HYPERTENSION Status: Acute Current Visit: Yes Qualifiers: Hypertension type: essential hypertension Qualified Code(s): I10 - Essential (primary) hypertension (3) Obesities, morbid SNOMED Code(s): 937771535, 74969378923764 Code(s): E66.01 - MORBID (SEVERE) OBESITY DUE TO EXCESS CALORIES Status: Acute Current Visit: Yes (4) SOBOE (shortness of breath on exertion) SNOMED Code(s): 21761914 Code(s): R06.02 - SHORTNESS OF BREATH Status: Acute Current Visit: Yes (5) H/O: GI bleed SNOMED Code(s): 563413688 Code(s): Z87.19 - PERSONAL HISTORY OF OTHER DISEASES OF THE DIGESTIVE SYSTEM Status: Chronic Current Visit: Yes (6) Anemia SNOMED Code(s): 637242681 Code(s): D64.9 - ANEMIA, UNSPECIFIED Status: Acute Current Visit: No Qualifiers: Anemia type: iron deficiency (7) Thrombocytopenia SNOMED Code(s): 587859959 Code(s): D69.6 - THROMBOCYTOPENIA, UNSPECIFIED Status: Acute Current Visit: Yes (8) Hypokalemia SNOMED Code(s): 47575253 Code(s): E87.6 - HYPOKALEMIA Status: Acute Current Visit: Yes - Problem List Review Problem List Initiated/Reviewed/Updated: Yes - My Orders Last 24 Hours: My Active Orders 05/23/17 10:06 Convert IV to Saline Lock [OM.PC] Routine 05/23/17 10:15 Lisinopril [Prinivil] 20 mg PO DAILY 05/23/17 21:00 Carvedilol [Coreg] 6.25 mg PO BID Potassium Chloride [Klor-Con M20] 20 meq PO BID 05/24/17 05:11 CBC WITH AUTO DIFF [HEME] AM 05/24/17 06:00 BASIC METABOLIC PANEL,BMP [CHEM] AM 05/24/17 09:00 Furosemide [Lasix] 40 mg PO DAILY - Plan Plan:: 1. I don't see any signs of cirrhosis. Chest x-ray and CT show CHF. Echo shows diastolic dysfunction. So I stopped his Norvasc and his atenolol chlorothiazide. Start lisinopril 20 mg with Coreg 6.25 mg twice a day. 2. Change Lasix dose to 40 mg a day. 3. Potassium 20 mEq twice a day. 4. DC IV fluids and saline lock. 5. Ambulate frequently 6. CBC/panel 8 in the AM. 7. His platelet functions up a little bit and I'm hoping it'll continue to climb. Need to keep him to watch him with these med rechecks and make sure his edema doesn't get worse on Lasix 40 mg a day. 8. Anticipate discharge home tomorrow if he does well and has no regressions.
[2017-05-23] MEDS: amLODIPine 10 MG Tab PO SCH (11:15)
[2017-05-23] MEDS: Atenolol/Chlorthalidone 50-25 MG Tab PO SCH (11:16)
[2017-05-23] MEDS: Lisinopril 20 MG Tab PO SCH (11:56)
[2017-05-23] MEDS: Ferrous Sulfate 325 MG Tab PO SCH (18:51)
[2017-05-23] MEDS: Carvedilol 6.25 MG Tab PO SCH (20:41)
[2017-05-23] MEDS: Potassium Chloride 20 MEQ Tab.ER PO SCH (20:42)
[2017-05-24] MEDS: Pantoprazole 40 MG Tab.CR PO SCH (05:00)
[2017-05-24] MEDS: Ferrous Sulfate 325 MG Tab PO SCH (08:40)
[2017-05-24] MEDS: Carvedilol 6.25 MG Tab PO SCH (08:41)
[2017-05-24] MEDS: Aspirin 81 MG Tab.EC PO SCH (08:42)
[2017-05-24] MEDS: Polyethylene Glycol 3350 Powder 17 GM Packet PO SCH (08:42)
[2017-05-24] MEDS: Potassium Chloride 20 MEQ Tab.ER PO SCH (08:42)
[2017-05-24] MEDS: Lisinopril 20 MG Tab PO SCH (08:43)
[2017-05-24 08:44] VITALS: BP 116/59
[2017-05-24] MEDS ORDERED: Furosemide 40 MG Tab PO SCH (09:00)
--- NOTE | 2017-05-24 10:11 | PCM.PN ---
- General Info Date of Service: 05/24/17 Admission Dx/Problem (Free Text): Patient doing well. Uses a little shortness of breath when he walks. He believes his leg swelling is gone down. No chest pain. - Patient Data Vitals - Most Recent: Last Vital Signs Temp 97.8 F 05/24/17 04:50 Pulse 71 05/24/17 08:41 Resp 18 05/24/17 04:50 BP 116/59 L 05/24/17 08:43 Pulse Ox 91 L 05/24/17 04:50 Weight - Most Recent: 243 lb 3.2 oz I&O - Last 24 Hours: Intake & Output 05/23/17 05/24/17 05/24/17 22:59 06:59 14:59 Intake Total 500 400 Output Total 600 0 Balance -100 0 400 Lab Results Last 24 Hours: Laboratory Results - last 24 hr 05/24/17 05/24/17 Range/Units 06:40 06:40 WBC 3.8 L (4.5-12.0) X10-3/uL RBC 5.08 (4.30-5.75) x10(6)uL Hgb 9.5 L (11.5-15.5) g/dL Hct 32.9 (30.0-51.3) % MCV 64.8 L (80-96) fL MCH 18.6 L (27.7-33.6) pg MCHC 28.7 L (32.2-35.4) g/dL RDW 29.5 H (11.5-15.5) % Plt Count 30 L* (125-369) X10(3)uL MPV 7.4 (7.4-10.4) fL Neut % (Auto) Not Reportable Lymph % (Auto) Not Reportable Smith % (Auto) Not Reportable Eos % (Auto) Not Reportable Baso % (Auto) Not Reportable Neut # (Auto) Not Reportable Lymph # (Auto) Not Reportable Smith # (Auto) Not Reportable Eos # (Auto) Not Reportable Baso # (Auto) Not Reportable Add Manual Diff Yes Neutrophils % (Manual) 74 (46-82) % Lymphocytes % (Manual) 20 (13-37) % Monocytes % (Manual) 2 L (4-12) % Eosinophils % (Manual) 4 (0-5) % Hypochromasia Moderate H Anisocytosis Moderate H Microcytosis Moderate H Sodium 140 (135-145) mmol/L Potassium 3.2 L (3.5-5.3) mmol/L Chloride 103 (100-110) mmol/L Carbon Dioxide 31 H (23-29) mmol/L BUN 10 (8-23) mg/dL Creatinine 0.6 (0.6-1.3) mg/dL Est Cr Clr Drug Dosing 101.33 mL/min Estimated GFR (MDRD) > 60 (>60) BUN/Creatinine Ratio 16.7 (9-20) Glucose 103 (80-116) mg/dL Calcium 8.9 (8.6-10.2) mg/dL Med Orders - Current: Current Medications Aspirin (Halfprin) 162 mg PO DAILY [facility] Last Admin: 05/24/17 08:42 Dose: 162 mg Carvedilol (Coreg) 6.25 mg PO BID [facility] Last Admin: 05/24/17 08:41 Dose: 6.25 mg Ferrous Sulfate (Ferrous Sulfate) 325 mg PO BIDMEALS [facility] Last Admin: 05/24/17 08:40 Dose: 325 mg Furosemide (Lasix) 40 mg PO DAILY [facility] Last Admin: 05/24/17 08:42 Dose: 40 mg Lisinopril (Prinivil) 20 mg PO DAILY [facility] Last Admin: 05/24/17 08:43 Dose: 20 mg Pantoprazole Sodium (Protonix) 40 mg PO DAILY@0600 [facility] Last Admin: 05/24/17 05:00 Dose: 40 mg Polyethylene Glycol (Miralax) 17 gm PO DAILY [facility] Last Admin: 05/24/17 08:42 Dose: Not Given Potassium Chloride (Klor-Con M20) 20 meq PO BID [facility] Last Admin: 05/24/17 08:42 Dose: 20 meq Senna/Docusate Sodium (Senna Plus) 1 tab PO DAILY [facility] Last Admin: 05/24/17 08:43 Dose: 1 tab Simvastatin (Zocor) 80 mg PO BEDTIME [facility] Last Admin: 05/23/17 20:42 Dose: 80 mg Sodium Chloride (Saline Flush) 10 ml FLUSH ASDIRECTED PRN PRN Reason: Keep Vein Open Discontinued Medications Acetaminophen/Codeine Phosphate (Tylenol With Codeine No.3 300mg/30mg) 2 tab PO Q4H PRN PRN Reason: Pain Amlodipine Besylate (Norvasc) 10 mg PO DAILY [facility] Last Admin: 05/21/17 09:10 Dose: 10 mg Amlodipine Besylate (Norvasc) 10 mg PO DAILY [facility] Last Admin: 05/23/17 11:15 Dose: Not Given Aspirin (Halfprin) 162 mg PO DAILY [facility] Last Admin: 05/21/17 09:09 Dose: 162 mg Atenolol/Chlorthalidone (Tenoretic 50) 0.5 tab PO DAILY [facility] Last Admin: 05/23/17 11:16 Dose: Not Given Furosemide (Lasix) 40 mg IVPUSH NOW ONE Stop: 05/20/17 14:22 Last Admin: 05/20/17 15:29 Dose: 40 mg Furosemide (Lasix) 40 mg IVPUSH BIDDIURETIC [facility] Last Admin: 05/22/17 23:09 Dose: Not Given Furosemide (Lasix) 40 mg PO BIDDIURETIC [facility] Last Admin: 05/23/17 08:58 Dose: 40 mg Sodium Chloride (Normal Saline) 250 mls @ 100 mls/hr IV ASDIRECTED [facility] Last Admin: 05/20/17 20:27 Dose: 100 mls/hr Sodium Chloride (Normal Saline) 250 mls @ 100 mls/hr IV ASDIRECTED [facility] Iopamidol (Isovue-370 (76%)) 100 ml IV . DIRECTED ONE Stop: 05/21/17 10:25 Last Admin: 05/21/17 11:09 Dose: 100 ml Atenolol/Chlorthalidone 50/25 Tab *Ptom 0.5 tab PO DAILY [facility] Last Admin: 05/21/17 09:09 Dose: 0.5 tab Simvastatin [Zocor] (80 Mg *Ptom) 80 mg PO BEDTIME [facility] Last Admin: 05/20/17 21:13 Dose: 80 mg Omeprazole (Omeprazole) 20 mg PO DAILY [facility] Last Admin: 05/21/17 09:10 Dose: 20 mg Senna/Docusate Sodium (Senna Plus) 1 tab PO DAILY [facility] Last Admin: 05/21/17 09:10 Dose: 1 tab - Exam General: Alert, Oriented, Cooperative Lungs: Clear to Auscultation, Normal Respiratory Effort Cardiovascular: Regular Rate, Regular Rhythm. No: No Murmurs Extremities: Pedal Edema (Improved) - Problem List & Annotations (1) CHF (congestive heart failure), NYHA class III SNOMED Code(s): 685162893, 272075307 Code(s): I50.9 - HEART FAILURE, UNSPECIFIED Status: Acute Current Visit: Yes Qualifiers: Congestive heart failure type: diastolic Congestive heart failure chronicity: acute Qualified Code(s): I50.31 - Acute diastolic (congestive) heart failure (2) HTN (hypertension) SNOMED Code(s): 18646618 Code(s): I10 - ESSENTIAL (PRIMARY) HYPERTENSION Status: Acute Current Visit: Yes Qualifiers: Hypertension type: essential hypertension Qualified Code(s): I10 - Essential (primary) hypertension (3) Obesities, morbid SNOMED Code(s): 094769202, 84328972616772 Code(s): E66.01 - MORBID (SEVERE) OBESITY DUE TO EXCESS CALORIES Status: Acute Current Visit: Yes (4) SOBOE (shortness of breath on exertion) SNOMED Code(s): 51404369 Code(s): R06.02 - SHORTNESS OF BREATH Status: Acute Current Visit: Yes (5) H/O: GI bleed SNOMED Code(s): 156578576 Code(s): Z87.19 - PERSONAL HISTORY OF OTHER DISEASES OF THE DIGESTIVE SYSTEM Status: Chronic Current Visit: Yes (6) Anemia SNOMED Code(s): 235682370 Code(s): D64.9 - ANEMIA, UNSPECIFIED Status: Acute Current Visit: No Qualifiers: Anemia type: iron deficiency (7) Thrombocytopenia SNOMED Code(s): 901334517 Code(s): D69.6 - THROMBOCYTOPENIA, UNSPECIFIED Status: Acute Current Visit: Yes (8) Hypokalemia SNOMED Code(s): 23043625 Code(s): E87.6 - HYPOKALEMIA Status: Acute Current Visit: Yes - Problem List Review Problem List Initiated/Reviewed/Updated: Yes - My Orders Last 24 Hours: My Active Orders 05/23/17 10:06 Convert IV to Saline Lock [OM.PC] Routine 05/23/17 10:15 Lisinopril [Prinivil] 20 mg PO DAILY 05/23/17 18:00 Ferrous Sulfate 325 mg PO BIDMEALS 05/23/17 21:00 Carvedilol [Coreg] 6.25 mg PO BID Potassium Chloride [Klor-Con M20] 20 meq PO BID 05/24/17 09:00 Furosemide [Lasix] 40 mg PO DAILY 05/24/17 10:01 FOLATE [REF] Routine VITAMIN B12 [CHEM] Routine 05/24/17 10:08 Ready for Discharge [RC] PER UNIT ROUTINE - Assessment Assessment:: 1. Discussed care with oncology/hematology. They think is limits her low most likely from alcohol. They recommended vitamin B12. I will order that and a folic acid before he leaves today. They also stated that his platelets should be rechecked in 2 days. If they're not going up they will get him in for a bone marrow. 2. DC to home with tramadol for pain, lisinopril and Coreg for blood pressure and fluid. I stopped the Norvasc and his atenolol chlorthalidone. - Plan Plan:: 1. I don't see any signs of cirrhosis. Chest x-ray and CT show CHF. Echo shows diastolic dysfunction. So I stopped his Norvasc and his atenolol chlorothiazide. Start lisinopril 20 mg with Coreg 6.25 mg twice a day. 2. Change Lasix dose to 40 mg a day. 3. Potassium 20 mEq twice a day. 4. DC IV fluids and saline lock. 5. Ambulate frequently 6. CBC/panel 8 in the AM. 7. His platelet functions up a little bit and I'm hoping it'll continue to climb. Need to keep him to watch him with these med rechecks and make sure his edema doesn't get worse on Lasix 40 mg a day. 8. Anticipate discharge home tomorrow if he does well and has no regressions.
--- NOTE | 2017-05-24 10:13 | PCM.DCSUM1 ---
Discharge Summary - Hospital Course Free Text/Narrative:: Patient was admitted and given blood 2. Dr. Krishnan was consult to because of his history of gastric ulcer this bleeding in the past. He had 1 guaiac was negative. He had a EGD that was negative for ulcer. Patient's potassium was low and was treated with potassium. His platelets were low. He states he drinks a little bit every day and we are wondering if it CHF or liver disease is causing his swelling. I stopped his amlodipine and atenolol chlorthalidone and started him on lisinopril and Coreg. He was given Lasix IV initially and then by mouth and his swelling went down. His hemoglobin got over 9 after his transfusions and he was able to maintain it. Iron was started. Had a peripheral stated that showed iron deficiency anemia. No cause for thrombocytopenia. Discussed care with hematology and they thought it was most likely alcohol. Were to recheck a CBC outpatient and if platelets are not going up they will do bone marrow. Brief History: 77-year-old male with shortness of breath on any exertion. Symptoms have progressively gotten worse over 2 weeks. They also include excessive weight gain, significant swelling of both legs, and nonspecific chest pain. He denies any cough,headache,nausea or vomiting. He had occasional constipation but is well controlled on MiraLAX. He came to the clinic today and was found to have a hemoglobin of 6.0. He has a history of a GI bleed from a gastric ulcer and was last scoped in December by Dr. Krishnan. He also has a history of CAD, previously stable(PET scan neg in 2014) obesity, hypertension hyperlipidemia but also been well-controlled. He denies any melena stools dizziness or headache. He has chronic back pain from arthritis. - Discharge Data Discharge Date: 05/24/17 Discharge Disposition: Home, Self-Care 01 Condition: Good - Discharge Diagnosis/Problem(s) (1) CHF (congestive heart failure), NYHA class III SNOMED Code(s): 339513719, 285615079 ICD Code: I50.9 - HEART FAILURE, UNSPECIFIED Status: Acute Current Visit : Yes Qualifiers: Congestive heart failure type: diastolic Congestive heart failure chronicity: acute Qualified Code(s): I50.31 - Acute diastolic (congestive) heart failure (2) HTN (hypertension) SNOMED Code(s): 17927254 ICD Code: I10 - ESSENTIAL (PRIMARY) HYPERTENSION Status: Acute Current Visit: Yes Qualifiers: Hypertension type: essential hypertension Qualified Code(s): I10 - Essential (primary) hypertension (3) Obesities, morbid SNOMED Code(s): 771446383, 88015566221849 ICD Code: E66.01 - MORBID (SEVERE) OBESITY DUE TO EXCESS CALORIES Status: Acute Current Visit: Yes (4) SOBOE (shortness of breath on exertion) SNOMED Code(s): 10323670 ICD Code: R06.02 - SHORTNESS OF BREATH Status: Acute Current Visit: Yes (5) H/O: GI bleed SNOMED Code(s): 241933062 ICD Code: Z87.19 - PERSONAL HISTORY OF OTHER DISEASES OF THE DIGESTIVE SYSTEM Status: Chronic Current Visit: Yes (6) Anemia SNOMED Code(s): 617734117 ICD Code: D64.9 - ANEMIA, UNSPECIFIED Status: Acute Current Visit: No Qualifiers: Anemia type: iron deficiency (7) Thrombocytopenia SNOMED Code(s): 970275947 ICD Code: D69.6 - THROMBOCYTOPENIA, UNSPECIFIED Status: Acute Current Visit: Yes (8) Hypokalemia SNOMED Code(s): 39327564 ICD Code: E87.6 - HYPOKALEMIA Status: Acute Current Visit: Yes - Patient Summary/Data Operative Procedure(s) Performed: egd with bx - Patient Instructions Diet: Heart Healthy Diet Diet, Other: no ETOH Activity: As Tolerated Driving: May Drive Today Showering/Bathing: May Shower Notify Provider of: Swelling and Redness, Nausea and/or Vomiting Other/Special Instructions: 1. Recheck Thursday05/26/17 with primary provider with a CBC before the appointment. - Discharge Plan Prescriptions/Med Rec: Carvedilol [Coreg] 6.25 mg PO BID #60 tablet Ferrous Sulfate 325 mg PO BIDMEALS #60 tablet Lisinopril [Prinivil] 20 mg PO DAILY #30 tablet Potassium Chloride [Klor-Con M20] 20 meq PO DAILY #0 tab.er traMADol [Ultram] 50 mg PO Q6H PRN #120 tab PRN Reason: Pain Home Medications: Home Meds Gluc 2KCl/Chondr/Martha Hy/Hy Ac [Glucosamine & Chondroitin Cap] 1 each PO BID [History] [place]-3S/DHA/Epa/Fish Oil [[place]-3 Fish Oil 1,000 mg Sfgl] 1,200 mg PO BID 02/27 [History] Simvastatin [Zocor] 80 mg PO BEDTIME 02/28/16 [History] Aspirin [Halfprin] 162 mg PO DAILY 04/16/16 [History] Furosemide 40 mg PO DAILY 05/20/17 [History] Omeprazole 20 mg PO DAILY 05/20/17 [History] Polyethylene Glycol 3350 [MiraLAX] 17 gm PO DAILY 05/20/17 [History] Carvedilol [Coreg] 6.25 mg PO BID #60 tablet 05/24/17 [Rx] Ferrous Sulfate 325 mg PO BIDMEALS #60 tablet 05/24/17 [Rx] Lisinopril [Prinivil] 20 mg PO DAILY #30 tablet 05/24/17 [Rx] Potassium Chloride [Klor-Con M20] 20 meq PO DAILY #0 tab.er 05/24/17 [Rx] traMADol [Ultram] 50 mg PO Q6H PRN #120 tab 05/24/17 [Rx] - Discharge Summary/Plan Comment DC Time >30 min.: No - Patient Data Vitals - Most Recent: Last Vital Signs Temp 97.8 F 05/24/17 04:50 Pulse 71 05/24/17 08:41 Resp 18 05/24/17 04:50 BP 116/59 L 05/24/17 08:43 Pulse Ox 91 L 05/24/17 04:50 Weight - Most Recent: 243 lb 3.2 oz I&O - Last 24 hours: Intake & Output 05/23/17 05/24/17 05/24/17 22:59 06:59 14:59 Intake Total 500 400 Output Total 600 0 Balance -100 0 400 Lab Results - Last 24 hrs: Laboratory Results - last 24 hr 05/24/17 05/24/17 Range/Units 06:40 06:40 WBC 3.8 L (4.5-12.0) X10-3/uL RBC 5.08 (4.30-5.75) x10(6)uL Hgb 9.5 L (11.5-15.5) g/dL Hct 32.9 (30.0-51.3) % MCV 64.8 L (80-96) fL MCH 18.6 L (27.7-33.6) pg MCHC 28.7 L (32.2-35.4) g/dL RDW 29.5 H (11.5-15.5) % Plt Count 30 L* (125-369) X10(3)uL MPV 7.4 (7.4-10.4) fL Neut % (Auto) Not Reportable Lymph % (Auto) Not Reportable [place] % (Auto) Not Reportable Eos % (Auto) Not Reportable Baso % (Auto) Not Reportable Neut # (Auto) Not Reportable Lymph # (Auto) Not Reportable Forrest # (Auto) Not Reportable Eos # (Auto) Not Reportable Baso # (Auto) Not Reportable Add Manual Diff Yes Neutrophils % (Manual) 74 (46-82) % Lymphocytes % (Manual) 20 (13-37) % Monocytes % (Manual) 2 L (4-12) % Eosinophils % (Manual) 4 (0-5) % Hypochromasia Moderate H Anisocytosis Moderate H Microcytosis Moderate H Sodium 140 (135-145) mmol/L Potassium 3.2 L (3.5-5.3) mmol/L Chloride 103 (100-110) mmol/L Carbon Dioxide 31 H (23-29) mmol/L BUN 10 (8-23) mg/dL Creatinine 0.6 (0.6-1.3) mg/dL Est Cr Clr Drug Dosing 101.33 mL/min Estimated GFR (MDRD) > 60 (>60) BUN/Creatinine Ratio 16.7 (9-20) Glucose 103 (80-116) mg/dL Calcium 8.9 (8.6-10.2) mg/dL Med Orders - Current: Current Medications Aspirin (Halfprin) 162 mg PO DAILY [facility] Last Admin: 05/24/17 08:42 Dose: 162 mg Carvedilol (Coreg) 6.25 mg PO BID [facility] Last Admin: 05/24/17 08:41 Dose: 6.25 mg Ferrous Sulfate (Ferrous Sulfate) 325 mg PO BIDMEALS [facility] Last Admin: 05/24/17 08:40 Dose: 325 mg Furosemide (Lasix) 40 mg PO DAILY [facility] Last Admin: 05/24/17 08:42 Dose: 40 mg Lisinopril (Prinivil) 20 mg PO DAILY [facility] Last Admin: 08/20/17 08:43 Dose: 20 mg Pantoprazole Sodium (Protonix) 40 mg PO DAILY@0600 [facility] Last Admin: 05/24/17 05:00 Dose: 40 mg Polyethylene Glycol (Miralax) 17 gm PO DAILY [facility] Last Admin: 05/24/17 08:42 Dose: Not Given Potassium Chloride (Klor-Con M20) 20 meq PO BID [facility] Last Admin: 05/24/17 08:42 Dose: 20 meq Senna/Docusate Sodium (Senna Plus) 1 tab PO DAILY [facility] Last Admin: 05/24/17 08:43 Dose: 1 tab Simvastatin (Zocor) 80 mg PO BEDTIME [facility] Last Admin: 05/23/17 20:42 Dose: 80 mg Sodium Chloride (Saline Flush) 10 ml FLUSH ASDIRECTED PRN PRN Reason: Keep Vein Open Discontinued Medications Acetaminophen/Codeine Phosphate (Tylenol With Codeine No.3 300mg/30mg) 2 tab PO Q4H PRN PRN Reason: Pain Amlodipine Besylate (Norvasc) 10 mg PO DAILY [facility] Last Admin: 05/21/17 09:10 Dose: 10 mg Amlodipine Besylate (Norvasc) 10 mg PO DAILY [facility] Last Admin: 05/23/17 11:15 Dose: Not Given Aspirin (Halfprin) 162 mg PO DAILY [facility] Last Admin: 05/21/17 09:09 Dose: 162 mg Atenolol/Chlorthalidone (Tenoretic 50) 0.5 tab PO DAILY [facility] Last Admin: 05/23/17 11:16 Dose: Not Given Furosemide (Lasix) 40 mg IVPUSH NOW ONE Stop: 05/20/17 14:22 Last Admin: 05/20/17 15:29 Dose: 40 mg Furosemide (Lasix) 40 mg IVPUSH BIDDIURETIC [facility] Last Admin: 05/22/17 23:09 Dose: Not Given Furosemide (Lasix) 40 mg PO BIDDIURETIC [facility] Last Admin: 05/23/17 08:58 Dose: 40 mg Sodium Chloride (Normal Saline) 250 mls @ 100 mls/hr IV ASDIRECTED [facility] Last Admin: 05/20/17 20:27 Dose: 100 mls/hr Sodium Chloride (Normal Saline) 250 mls @ 100 mls/hr IV ASDIRECTED [facility] Iopamidol (Isovue-370 (76%)) 100 ml IV . DIRECTED ONE Stop: 05/21/17 10:25 Last Admin: 05/21/17 11:09 Dose: 100 ml Atenolol/Chlorthalidone 50/25 Tab *Ptom 0.5 tab PO DAILY [facility] Last Admin: 05/21/17 09:09 Dose: 0.5 tab Simvastatin [Zocor] (80 Mg *Ptom) 80 mg PO BEDTIME [facility] Last Admin: 05/20/17 21:13 Dose: 80 mg Omeprazole (Omeprazole) 20 mg PO DAILY [facility] Last Admin: 05/21/17 09:10 Dose: 20 mg Senna/Docusate Sodium (Senna Plus) 1 tab PO DAILY [facility] Last Admin: 05/21/17 09:10 Dose: 1 tab *Q Meaningful Use (DIS) - VTE *Q VTE Criteria *Q: - Stroke *Q Stroke Criteria *Q: - AMI *Q AMI Criteria *Q:
== END 2017-05-24 12:00 | disposition home or self-care (01) | DRG 811 ==
LOC: FB.MS 09:06 → OBSVTOIN 05-21 09:06
PROVIDERS: ADMIT Family Medicine; ATTEND Family Medicine
PROC: 30233N1 Transfusion of Nonautologous Red Blood Cells into Peripheral Vein, Percutaneous Approach (ICD-10-PCS; 2017-05-20)
PROC: 30233N1 Transfusion of Nonautologous Red Blood Cells into Peripheral Vein, Percutaneous Approach (ICD-10-PCS; 2017-05-21)
PROC: 0DB68ZX Excision of Stomach, Via Natural or Artificial Opening Endoscopic, Diagnostic (ICD-10-PCS; principal; 2017-05-22)
DX: D64.9 Anemia, unspecified (principal); I50.9 Heart failure, unspecified; R06.02 Shortness of breath; D50.9 Iron deficiency anemia, unspecified; I50.31 Acute diastolic (congestive) heart failure; N17.9 Acute kidney failure, unspecified; Z68.41 Body mass index [BMI] 40.0-44.9, adult; R09.02 Hypoxemia; D69.6 Thrombocytopenia, unspecified; I25.10 Atherosclerotic heart disease of native coronary artery without angina pectoris; I11.0 Hypertensive heart disease with heart failure; E78.5 Hyperlipidemia, unspecified; M54.9 Dorsalgia, unspecified; G89.29 Other chronic pain; M19.90 Unspecified osteoarthritis, unspecified site; Z87.891 Personal history of nicotine dependence; N40.0 Benign prostatic hyperplasia without lower urinary tract symptoms; E66.01 Morbid (severe) obesity due to excess calories; Z87.19 Personal history of other diseases of the digestive system; E87.6 Hypokalemia
CPT/HCPCS: 36415 ×2; 36430; 71020; 80053 ×2; 82270; 82728; 83540; 83550; 83880 ×2; 84484; 85025 ×2; 85045; 85379; 86850; 86900; 86901; 86920; 86922; 93005; A9270; G0378 ×2; G0379; J1940; J7050; P9016 ×2; 71275; 80048; 82607; 82746; 88104; 88305; 88342; 93306; 99220; J2250; J2704; Q9967

== ENCOUNTER 2017-06-06 11:31 | Emergency (ER) | payer MEDICARE, BC ==
[2017-06-06 15:23] VITALS: BP 131/74
--- NOTE | 2017-06-07 03:14 | ER ---
DATE SEEN: 06/06/2017 TIME SEEN: The patient was seen at 0010 hours. HISTORY OF PRESENT ILLNESS: Remy is a 77-year-old man, who comes in with his . She has noted that he has chief complaint of slight dizziness, weakness, and transient diaphoresis. He states at 0400 hours got up and he had some to eat, went back to bed, napped for 2 hours, got up and went to the bathroom, then he became weak and diaphoretic as he moved about. He states he has lost 40 pounds since he was hospitalized on May 20 shortness of breath and anxiety. He was started on Lasix and he feels much since then. He no longer has dyspnea on exertion. He had a GI bleed May 20 and EGD endoscopy did not demonstrate the site of bleeding. He did not have colonoscopy. He had negative coags. He was transfuse with 2 units of blood. His hemoglobin came up to around 10.8. At that time, he was dyspneic at 15 feet, now he gets mildly short of breath at 100 and 200 feet. He is obese, has hypertension, coronary artery disease, arthritis, and has large gallstone. OTHER PAST MEDICAL HISTORY: Coronary artery disease, acute kidney injury, dyslipidemia, hypertension, congestive heart failure, obesity, anemia, thrombocytopenia, hypokalemia. CURRENT MEDICATIONS: 1. Simvastatin. 2. [place] oil, fish oil. 3. Chondroitin for arthritis. 4. Lisinopril 20 mg daily. 5. Lasix 40 mg daily. 6. Iron sulfate 325 mg b.i.d. REVIEW OF SYSTEMS: Otherwise, negative except as noted above. PHYSICAL EXAMINATION: VITAL SIGNS: Blood pressure 121/66, heart rate 97, respirations 18, oxygen saturation 98%, temperature is 36.8 degrees centigrade. GENERAL: This pleasant, very bulbous man, with a bulbous abdomen, is alert and has mild tachycardia 102. Denies chest pain or shortness of breath. Does not have difficulty breathing and has appropriate communication. He is present with his . CONSTITUTIONAL: Alert man in no acute distress, not diaphoretic. SKIN: Dry, but he has mild tachycardia 102. HEENT: TMs negative. Pharynx without abnormality, slightly decreased. He has moderately decreased hearing. Mucosa is semi dry. LUNGS: Occasional basilar rales in posterior but not extensive. HEART: S1, S2. No irregular rate and rhythm. No murmur. He has a split S1 and S3 and S4-a gallop rhythm. ABDOMEN: Increased abdominal girth. Mild ascites. No abdominal tenderness. Bowel sounds hypoactive but present. No abdominal pain with palpation of the abdomen. No CVA percussion tenderness. EXTREMITIES: Mild spinous process tenderness lower back. Has 1+ trace edema. Mild stasis dermatitis. No tenderness to lower extremities. The vascular structures are without tenderness or redness or pain. Deep tendon reflex is hypoactive upper and lower extremities. NEUROLOGIC: Cranial nerves 2 through 12 intact. Oriented x3. Gait intact. Romberg negative. He is slightly slow with his gait. LABORATORY FINDINGS: Hemoglobin 11.1. This is very good from what it was before. After several unit transfusion, microcytic hyperchromic anemia on RBC indices. Platelets 191,000. D-dimer 537, not abnormal for his age. Study showed that 10 times of his age would be 760, will still be considered normal. Troponin is -0.01. Chemistry is negative except for AST slightly elevated at 33. Otherwise sodium 140, potassium 3.8, chloride 106, CO2 of 27, BUN 13, creatinine 0.7. GFR greater than 60. BUN and creatinine ratio 18.6. Urinalysis is normal. Chest x-ray, mild cardiomegaly. EKG sinus rhythm. Continue EKG sinus rhythm. Sinus tachycardia. ASSESSMENT: The patient had mild orthostasis with he getting up out of bed, has mild dehydration from aggressive diuresis. His weight has dropped approximately 36 pounds since May, and he is advised to make sure he maintains it. He takes adequate fluids. He has hypoalbuminemia reflecting his ascites. 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 He is to move and pump his legs before transitioning form sitting to standing. Follow up with his doctor in a week. He wanted to get better, I said at this point, we could not change the cirrhosis, but he could perform stationary exercises of his upper body even though he has arthritis and weakness in his lower extremities. Other diagnosis: He had history of Helicobacter pylori with GI bleed 02/2016 and prostatism. /[id number] [address] HOWE
--- NOTE | 2017-06-12 13:36 | CR ---
INDICATION: Chest pain. COMPARISON: PA and lateral chest 20 May 2017. CHEST, 1 VIEW: Lack of complete visualization of the inferolateral right hemithorax precludes optimal evaluation, in particular for small right pleural effusion. Moderate perihilar, bibasilar segmental atelectasis, and/or parenchymal scarring change mildly improved. Moderate cardiomegaly, no interstitial edema, stable. No pneumothorax. No other interval change. IMPRESSION: Moderate perihilar, bibasilar segmental atelectasis, and/or parenchymal scarring change, mildly improved. MTDD
== END 2017-06-06 15:00 | disposition home or self-care (01) ==
LOC: FB.ED 11:31
DX: E86.0 Dehydration (principal); K70.31 Alcoholic cirrhosis of liver with ascites; E88.09 Other disorders of plasma-protein metabolism, not elsewhere classified; I11.0 Hypertensive heart disease with heart failure; I50.9 Heart failure, unspecified; I25.10 Atherosclerotic heart disease of native coronary artery without angina pectoris; M19.90 Unspecified osteoarthritis, unspecified site; E78.5 Hyperlipidemia, unspecified; D69.6 Thrombocytopenia, unspecified; E87.6 Hypokalemia; E66.9 Obesity, unspecified; Z68.34 Body mass index [BMI] 34.0-34.9, adult; Z86.79 Personal history of other diseases of the circulatory system; Z79.899 Other long term (current) drug therapy
CPT/HCPCS: 36415; 71010; 80053; 81001; 83605; 84443; 84484; 85025; 85379; 85610; 87040; 93005; 99284; 99285

== ENCOUNTER 2017-12-17 06:37 | Day surgery (SDC) | payer MEDICARE, BC ==
[2017-12-17] MEDS ORDERED: Lactated Ringers 1,000 ML IV SCH (07:15)
[2017-12-17] MEDS ORDERED: Sodium Chloride 0.9% 10 ML Syringe FLUSH PRN (07:15)
[2017-12-17] MEDS ORDERED: Propofol 200 MG/20 ML SDV IV ONE ×2 (08:30)
[2017-12-17] MEDS ORDERED: Midazolam 1 MG/ML 2 ML SDV IV ONE ×2 (08:30)
--- NOTE | 2017-12-17 08:59 | PCM.OPNOTE ---
- General Post-Op/Procedure Note Date of Surgery/Procedure: 12/17/17 Operative Procedure(s): c scope with bx Findings: ascending colon polyp sigmoid colon polyp Pre Op Diagnosis: hx of colon polyps Post-Op Diagnosis: ascending colon polyp. sigmoid colon polyp Anesthesia Technique: MAC Primary Surgeon: Vikas Krishnan Anesthesia Provider: Sung Little Pathology: ascending colon polyp sigmoid colon polyp Complications: None Condition: Good Free Text/Narrative:: see dictation
[2017-12-17 11:10] VITALS: BP 148/63
--- NOTE | 2017-12-17 11:47 | OR ---
DATE OF OPERATION: 12/17/2017 SURGEON: Vikas Krishnan MD PROCEDURE PERFORMED: Colonoscopy with cold forceps biopsy. PREOPERATIVE DIAGNOSIS: Personal history of colon polyps. POSTOPERATIVE DIAGNOSIS: Ascending and sigmoid colon polyp. INDICATIONS FOR PROCEDURE: This is a 77-year-old white male who presents for a followup colonoscopy. He has a history of some colon polyps in the past with some low-grade dysplasia. The patient was offered and accepted followup C scope. DESCRIPTION OF PROCEDURE: After an excellent IV sedation was administered, digital rectal exam was performed. No marked abnormality was noted. Flexible colonoscope was inserted and advanced to the cecum without difficulty. The prep was good. There were some areas that we had to irrigate, but we did get an adequate view of the colon. The following findings were noted: Ascending colon, small polypoid lesion, biopsied with cold biopsy forceps and sent for permanent. Transverse colon was unremarkable. Descending colon was unremarkable. Sigmoid, small polyp, biopsied with cold biopsy forceps and sent for permanent. Rectum and anus unremarkable. Colon was deflated as the scope was removed. The patient tolerated the procedure well, and was taken to recovery room in good condition. /[id number] /MODL
== END 2017-12-17 09:58 | disposition home or self-care (01) ==
LOC: FB.SDS 06:37
PROVIDERS: ATTEND Surgery
DX: Z12.11 Encounter for screening for malignant neoplasm of colon (principal); D12.2 Benign neoplasm of ascending colon; K63.5 Polyp of colon; I10 Essential (primary) hypertension; E78.00 Pure hypercholesterolemia, unspecified; I25.10 Atherosclerotic heart disease of native coronary artery without angina pectoris; N40.0 Benign prostatic hyperplasia without lower urinary tract symptoms; E66.9 Obesity, unspecified; I50.30 Unspecified diastolic (congestive) heart failure; Z87.891 Personal history of nicotine dependence; Z86.010 Personal history of colon polyps; Z79.82 Long term (current) use of aspirin; Z79.899 Other long term (current) drug therapy; Z68.31 Body mass index [BMI] 31.0-31.9, adult
CPT/HCPCS: 00811; 36415; 45380; 85025; 88305; J2250; J2704; J7120

== ENCOUNTER 2023-03-16 06:40 | Day surgery (SDC) | payer BC, MEDICARE ==
[2023-03-16] MEDS ORDERED: Propofol 200 MG/20 ML SDV IV ONE (06:41)
[2023-03-16] MEDS ORDERED: Lidocaine 2% 5 ML SDV IV ONE (06:41)
[2023-03-16] MEDS ORDERED: Lactated Ringers 1,000 ML IV SCH (07:00)
[2023-03-16] MEDS ORDERED: Sodium Chloride 0.9% 10 ML Syringe FLUSH PRN (07:00)
[2023-03-16 08:06] VITALS: BP 164/85; PULSE 55
[2023-03-16] MEDS ORDERED: Simethicone Drops 40 MG/0.6 ML 30 ML Bottle PO ONE (08:50)
== END 2023-03-16 10:16 | disposition home or self-care (01) ==
LOC: FB.SDS 06:40
PROVIDERS: ATTEND Surgery
DX: Z12.11 Encounter for screening for malignant neoplasm of colon (principal); D12.6 Benign neoplasm of colon, unspecified; I65.23 Occlusion and stenosis of bilateral carotid arteries; N40.0 Benign prostatic hyperplasia without lower urinary tract symptoms; K21.9 Gastro-esophageal reflux disease without esophagitis; I25.10 Atherosclerotic heart disease of native coronary artery without angina pectoris; M10.9 Gout, unspecified; E78.00 Pure hypercholesterolemia, unspecified; I11.0 Hypertensive heart disease with heart failure; I50.9 Heart failure, unspecified; D69.6 Thrombocytopenia, unspecified; K70.30 Alcoholic cirrhosis of liver without ascites; M17.0 Bilateral primary osteoarthritis of knee; E66.9 Obesity, unspecified; Z79.899 Other long term (current) drug therapy; Z79.82 Long term (current) use of aspirin; Z87.891 Personal history of nicotine dependence; Z90.5 Acquired absence of kidney; Z98.890 Other specified postprocedural states; Z68.35 Body mass index [BMI] 35.0-35.9, adult; Z85.118 Personal history of other malignant neoplasm of bronchus and lung
CPT/HCPCS: 00811; 45380; 45385; 88305; A9270; J2704; J7120

== ENCOUNTER 2023-06-27 16:22 | Emergency (ER) | payer BC, MEDICARE, OTHER ==
[2023-06-27 17:23] LABS: BASOPHILS PERCENT AUTO 0.7 % (0.3-3.8); EOSINOPHILS ABSOLUTE AUTO 0.1 x10-3/uL (0.0-0.6); EOSINOPHILS PERCENT AUTO 1.3 % (0.1-6.8); HEMATOCRIT 46.5 % (38.3-50.1); HEMOGLOBIN 15.7 g/dL (12.9-17.7); LYMPHOCYTES ABSOLUTE AUTO 1.1 x10-3/uL (0.5-4.5); LYMPHOCYTES PERCENT AUTO 17.1 % (15.8-45.3); MEAN CORPUSCULAR HEMOGLOBIN 31.5 pg (27.0-33.3); MEAN CORPUSCULAR HGB CONC 33.8 g/dL (28.7-35.3); MEAN CORPUSCULAR VOLUME 93.3 fL (80.8-98.7); MEAN PLATELET VOLUME 8.1 fL (6.7-11.0); MONOCYTES ABSOLUTE AUTO 0.5 x10-3/uL (0.0-1.2); MONOCYTES PERCENT AUTO 8.2 % (5.5-15.2); NEUTROPHILS ABSOLUTE AUTO 4.7 x10-3/uL (1.7-6.9); NEUTROPHILS PERCENT AUTO 72.7 % (40.3-71.8); PLATELET COUNT,PLT 109 x10(3)uL (117-477); RED BLOOD CELL COUNT 4.98 x10(6)uL (3.90-5.90); RED CELL DISTRIBUTION WIDTH 14.8 % (12.4-15.0); WHITE BLOOD CELL COUNT,WBC 6.5 x10-3/uL (3.2-10.1)
[2023-06-27 17:32] LABS: BLOOD UREA NITROGEN,BUN 22 mg/dL (7-18); CALCIUM 9.7 mg/dL (8.6-10.2); CARBON DIOXIDE,CO2 27 mmol/L (21-32); CHLORIDE,CL 107 mmol/L (100-110); ESTIMATED GFR 75 mL/min (>60); GLUCOSE RANDOM 125 mg/dL (80-116); POTASSIUM,K 3.8 mmol/L (3.5-5.3); SODIUM,NA 142 mmol/L (135-145)
[2023-06-27 17:40] LABS: A/G RATIO 1.3; ALANINE AMINOTRANSFERASE,ALT 28 U/L (12-36); ALBUMIN 3.7 g/dL (3.2-4.6); ALKALINE PHOSPHATASE 103 IU/L (56-112); ASPARTATE AMNIOTRANSFERASE,AST 17 IU/L (5-25); BILIRUBIN TOTAL 0.4 mg/dL (0.1-1.3); PROTEIN TOTAL,TP 6.6 g/dL (6.0-8.0)
[2023-06-27 17:47] LABS: TROPONIN I 15.7 pg/mL (4.0-60.3)
[2023-06-27 18:25] VITALS: BP 144/86; PULSE 62
== END 2023-06-27 18:20 | disposition home or self-care (01) ==
LOC: FB.ED 16:22
DX: I11.0 Hypertensive heart disease with heart failure (principal); E86.0 Dehydration; D69.6 Thrombocytopenia, unspecified; M16.10 Unilateral primary osteoarthritis, unspecified hip; C64.2 Malignant neoplasm of left kidney, except renal pelvis; I25.10 Atherosclerotic heart disease of native coronary artery without angina pectoris; I50.9 Heart failure, unspecified; E78.00 Pure hypercholesterolemia, unspecified; E66.9 Obesity, unspecified; K21.9 Gastro-esophageal reflux disease without esophagitis; Z79.82 Long term (current) use of aspirin; Z79.899 Other long term (current) drug therapy
CPT/HCPCS: 36415; 80053; 83880; 84484; 85025; 99283

== ENCOUNTER 2023-07-08 07:44 | Day surgery (SDC) | payer MEDICARE ==
[~2023-07-08 07:44] MED LIST: Lactated Ringers 1,000 ML IV SCH; Sodium Chloride 0.9% 10 ML Syringe FLUSH PRN
[2023-07-08] MEDS ORDERED: Propofol 200 MG/20 ML SDV IV ONE (07:45)
[2023-07-08] MEDS ORDERED: Lidocaine 2% 5 ML SDV IV ONE (07:45)
[2023-07-08 08:33] VITALS: BP 129/79; PULSE 57
[2023-07-08] MEDS ORDERED: Simethicone Drops 40 MG/0.6 ML 30 ML Bottle PO ONE (09:46)
== END 2023-07-08 11:19 | disposition home or self-care (01) ==
LOC: FB.SDS 07:44
PROVIDERS: ATTEND Surgery
DX: D12.6 Benign neoplasm of colon, unspecified (principal); N40.0 Benign prostatic hyperplasia without lower urinary tract symptoms; I25.10 Atherosclerotic heart disease of native coronary artery without angina pectoris; K21.9 Gastro-esophageal reflux disease without esophagitis; M10.9 Gout, unspecified; E78.00 Pure hypercholesterolemia, unspecified; I10 Essential (primary) hypertension; D69.6 Thrombocytopenia, unspecified; M17.0 Bilateral primary osteoarthritis of knee; E66.9 Obesity, unspecified; Z79.82 Long term (current) use of aspirin; Z87.891 Personal history of nicotine dependence; Z68.32 Body mass index [BMI] 32.0-32.9, adult; Z79.899 Other long term (current) drug therapy
CPT/HCPCS: 00811; 45385; 88305; A9270; J2704; J7120

== ENCOUNTER 2023-12-21 05:51 | Day surgery (SDC) | payer MEDICARE ==
[2023-12-21] MEDS ORDERED: Propofol 200 MG/20 ML SDV IV ONE (05:52)
[2023-12-21] MEDS ORDERED: Sodium Chloride 0.9% 10 ML Syringe FLUSH PRN (06:15)
[2023-12-21] MEDS: Lactated Ringers 1,000 ML IV SCH (07:15)
[2023-12-21] MEDS: EPINEPHrine 1 MG/ML SDV ONE (08:20)
[2023-12-21 11:45] VITALS: BP 179/85; PULSE 57
== END 2023-12-21 11:36 ==
LOC: FB.SDS 05:51
PROVIDERS: ATTEND Surgery
DX: K29.81 Duodenitis with bleeding (principal); K21.9 Gastro-esophageal reflux disease without esophagitis; E78.5 Hyperlipidemia, unspecified; K31.7 Polyp of stomach and duodenum; Z87.19 Personal history of other diseases of the digestive system; Z79.899 Other long term (current) drug therapy; Z87.891 Personal history of nicotine dependence
CPT/HCPCS: 00731; 88305; 99100; J0171; J2704; J7120

== ENCOUNTER 2024-07-25 19:07 | Emergency (ER) | payer MEDICARE ==
[2024-07-25] MEDS ORDERED: Sodium Chloride 0.9% 10 ML Syringe FLUSH PRN (19:20)
[2024-07-25] MEDS: Albuterol/Ipratropium 3.0-0.5 MG/3 ML Neb Soln NEB ONE (19:28)
[2024-07-25 19:43] LABS: HEMATOCRIT 47.2 % (38.3-50.1); HEMOGLOBIN 15.5 g/dL (12.9-17.7); MEAN CORPUSCULAR HEMOGLOBIN 30.4 pg (27.0-33.3); MEAN CORPUSCULAR HGB CONC 32.9 g/dL (28.7-35.3); MEAN CORPUSCULAR VOLUME 92.2 fL (80.8-98.7); MEAN PLATELET VOLUME 8.3 fL (6.7-11.0); PLATELET COUNT,PLT 99 x10(3)uL (117-477); RED BLOOD CELL COUNT 5.12 x10(6)uL (3.90-5.90); RED CELL DISTRIBUTION WIDTH 15.9 % (12.4-15.0); WHITE BLOOD CELL COUNT,WBC 7.2 x10-3/uL (3.2-10.1)
[2024-07-25 19:56] LABS: A/G RATIO 0.9; ALANINE AMINOTRANSFERASE,ALT 23 U/L (12-36); ALBUMIN 3.1 g/dL (3.2-4.6); ALKALINE PHOSPHATASE 89 IU/L (56-112); ASPARTATE AMNIOTRANSFERASE,AST 23 IU/L (5-25); BILIRUBIN TOTAL 0.7 mg/dL (0.1-1.3); BLOOD UREA NITROGEN,BUN 46 mg/dL (7-18); CALCIUM 8.9 mg/dL (8.6-10.2); CARBON DIOXIDE,CO2 26 mmol/L (21-32); CHLORIDE,CL 107 mmol/L (100-110); ESTIMATED GFR 33 mL/min (>60); GLUCOSE RANDOM 103 mg/dL (80-116); POTASSIUM,K 3.6 mmol/L (3.5-5.3); PROTEIN TOTAL,TP 6.4 g/dL (6.0-8.0); SODIUM,NA 143 mmol/L (135-145)
[2024-07-25 20:00] LABS: LACTIC ACID 1.9 mmol/L (0.4-2.0)
[2024-07-25 20:03] LABS: TROPONIN I 56.4 pg/mL (4.0-60.3)
[2024-07-25 20:06] LABS: BAND PERCENT MAN 5 % (0-6); LYMPHOCYTES PERCENT MAN 12 % (13-37); MONOCYTES PERCENT MAN 7 % (4-12); SEG NEUTROPHILS PERCENT MAN 76 % (46-82)
[2024-07-25 20:26] LABS: INFLUENZA A NAA NEGATIVE (NEGATIVE); INFLUENZA B NAA NEGATIVE (NEGATIVE); RESPIRATORY SYNCYTIAL VIR NAA NEGATIVE (NEGATIVE)
[2024-07-25] MEDS: cefTRIAXone 2 GM Vial IVPUSH ONE (20:26)
[2024-07-25 20:28] LABS: CORONAVIRUS COVID-19 NAA NEGATIVE (NEGATIVE)
[2024-07-25] MEDS: Sodium Chloride 0.9% 1,000 ML IV ONE (20:31)
[2024-07-25] MEDS: Acetaminophen 500 MG Tab PO ONE (20:41)
[2024-07-25 21:54] VITALS: BP 86/47; PULSE 77
== END 2024-07-25 22:30 ==
LOC: FB.ED 19:07
DX: J84.9 Interstitial pulmonary disease, unspecified (principal); I11.0 Hypertensive heart disease with heart failure; I50.31 Acute diastolic (congestive) heart failure; N17.9 Acute kidney failure, unspecified; D69.9 Hemorrhagic condition, unspecified; I25.10 Atherosclerotic heart disease of native coronary artery without angina pectoris; E78.00 Pure hypercholesterolemia, unspecified; Z87.891 Personal history of nicotine dependence; K21.9 Gastro-esophageal reflux disease without esophagitis; M19.90 Unspecified osteoarthritis, unspecified site; Z79.82 Long term (current) use of aspirin; Z79.899 Other long term (current) drug therapy
CPT/HCPCS: 0241U; 36415; 71250; 80053; 83605; 83880; 84484; 85025; 86140; 87040; 96361; 96374; 99285; 99285-25; A9270-GY; J0696; J7030; J7620